=== PATIENT | male | born 1985 | race Hispanic/Latino ===

== ENCOUNTER 2017-05-16 20:15 | Emergency (ER) | payer SELFPAY ==
[2017-05-16] MEDS ORDERED: TORAdol 30 mg Injection IM ONE (20:50)
[2017-05-16] MEDS ORDERED: Cyclobenzaprine 10 MG PO ONE (20:51)
[2017-05-16] MEDS ORDERED: TORAdol 30 mg Injection ONE (20:54)
[2017-05-16] MEDS ORDERED: Cyclobenzaprine 10 MG ONE (20:54)
--- NOTE | 2017-05-16 20:54 | ERPHSYRPT ---
- History of Present Illness Time Seen by Provider: 05/16/17 20:51 Source: patient Exam Limitations: no limitations Patient Subjective Stated Complaint: pt states he started having mid back pain on friday and has been increasing since. c/o sharp mid back pain. Triage Nursing Assessment: pt awake and alert, asnwers questions approp with doctor of osteopathy. pt unable to lie on back. states prone postition in more comfortable. pt ambualtoryw ith steady gait ntoed. respirations nonlabored with lungs cta. tenderness noted to mid back bilat. Physician History: 32 y/o male comes to the ER with upper back pain that started on Friday. Pt states that he has been lifting heavy objects at work but does not remember when he twisted his back. Pt describes the pain as sharp, constant, 10/10, worse with movement and pt has not taken any pain meds. Pt says that the back is very stiff. Pt denies any leg weakness or bowel or urinary incontinence. Timing/Duration: day(s) Method of Injury: unknown Quality: sharp Associated Symptoms: muscle spasms Allergies/Adverse Reactions: No Known Drug Allergies Allergy (Verified 05/16/17 20:42) Home Medications: No Home Meds 1 ea MC UD 05/16/17 [History] Hx Tetanus, Diphtheria Vaccination/Date Given: No Hx Influenza Vaccination/Date Given: No Hx Pneumococcal Vaccination/Date Given: No Immunizations Up to Date: Yes - Review of Systems Constitutional: No Fever, No Chills Eyes: No Symptoms Ears, Nose, & Throat: No Symptoms Respiratory: No Cough, No Dyspnea Cardiac: No Chest Pain, No Edema, No Syncope Abdominal/Gastrointestinal: No Abdominal Pain, No Nausea, No Vomiting, No Diarrhea Genitourinary Symptoms: No Dysuria Musculoskeletal: Back Pain, No Neck Pain Skin: No Rash Neurological: No Dizziness, No Focal Weakness, No Sensory Changes Psychological: No Symptoms Endocrine: No Symptoms All Other Systems: Reviewed and Negative - Past Medical History Pertinent Past Medical History: No Other Medical History: kidney stones - Past Surgical History Past Surgical History: No - Social History Smoking Status: Never smoker Exposure to second hand smoke: No Drug Use: none Patient Lives Alone: No - Nursing Vital Signs Nursing Vital Signs: Initial Vital Signs Temperature 98.2 F 05/16/17 20:30 Pulse Rate 77 05/16/17 20:30 Respiratory Rate 18 05/16/17 20:30 Blood Pressure 138/86 05/16/17 20:30 O2 Sat by Pulse Oximetry 100 05/16/17 20:30 Pain Scale Pain Intensity [Back] 10 Pain Intensity 0 - Physical Exam General Appearance: moderate distress, alert Eye Exam: PERRL/EOMI, eyes nml inspection Neck Exam: normal inspection, non-tender, supple, full range of motion, No meningismus, No midline tenderness Respiratory Exam: normal breath sounds, lungs clear, No respiratory distress Cardiovascular Exam: regular rate/rhythm, normal heart sounds Gastrointestinal Exam: soft, No tenderness, No mass Back Exam: decreased range of motion, muscle spasm, point tenderness Extremity Exam: normal inspection, normal range of motion, No calf tenderness, No pedal edema Neurologic Exam: alert, oriented x 3, cooperative, 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, normal mood/affect, nml station & gait, sensation nml, No motor deficits Skin Exam: normal color, warm, dry, No rash SpO2: 100 Oxygen Delivery: Room Air Ordered Tests: Medication Summary Discontinued Medications Generic Name Dose Route Start Last Admin Trade Name Bandarq PRN Reason Stop Dose Admin Hydrocodone Bitart/Acetaminophen 1 tab 05/16/17 21:48 [place] 5/325 Mg PO 05/16/17 21:49 STAT ONE Cyclobenzaprine HCl 10 mg 05/16/17 20:51 05/16/17 20:56 Cyclobenzaprine 10 Mg PO 05/16/17 20:52 10 mg STAT ONE Administration Cyclobenzaprine HCl Confirm 05/16/17 20:54 Cyclobenzaprine 10 Mg Administered 05/16/17 20:55 Dose 10 mg .ROUTE .STK-MED ONE Ketorolac Tromethamine 60 mg 05/16/17 20:50 05/16/17 20:56 Toradol 30 Mg Injection IM 05/16/17 20:51 60 mg STAT ONE Administration Ketorolac Tromethamine Confirm 05/16/17 20:54 Toradol 30 Mg Injection Administered 05/16/17 20:55 Dose 60 mg .ROUTE .STK-MED ONE - Progress Progress: improved Progress Note: 05/16/17 21:50 Pt says his pain has not improved but he is able to ambulate better after receiving toradol and flexeril. Pt will be d/c home on toradol, flexeril and norco for back spasm. - Departure Time of Disposition: 21:51 Departure Disposition: Home Clinical Impression: Back pain Qualifiers: Back pain location: thoracic back pain Chronicity: acute Back pain laterality: bilateral Qualified Code(s): M54.6 - Pain in thoracic spine Condition: Stable Critical Care Time: No Referrals: DOCTOR,NO FAMILY [Primary Care Provider] - Instructions: Low Back Pain Additional Instructions: Follow up with your primary care doctor for any additional recommendations for pain control. Prescriptions: Cyclobenzaprine HCl [Flexeril] 10 mg PO TID PRN #15 tablet PRN Reason: Muscle Spasms Hydrocodone/Acetaminophen [[place] 5-325 Tablet] 1 each PO QID PRN #10 tablet PRN Reason: Severe Pain Ketorolac Tromethamine [Toradol] 10 mg PO QID PRN #20 tablet PRN Reason: Pain
[2017-05-16] MEDS ORDERED: NORCO 5/325 MG PO ONE (21:48)
[2017-05-16] MEDS ORDERED: NORCO 5/325 MG ONE (21:59)
[2017-05-16 22:15] VITALS: BP 116/81; PULSE 66; O2SAT 98
== END 2017-05-16 22:15 | disposition home or self-care (01) ==
LOC: ED 20:15
DX: M54.6 Pain in thoracic spine (principal); X50.0XXA Overexertion from strenuous movement or load, initial encounter
CPT/HCPCS: 96372; 99284; J1885; A9270-GY